=== PATIENT | male | born 1945 | race Caucasian/White ===

== ENCOUNTER 2020-11-07 | Inpatient (IN) | payer MEDICARE ==
[~2020-11-07] VITALS: Ht 188 cm; Wt 97.2 kg
[2020-11-07] MEDS ORDERED: ASPI325 PO (02:56)
[2020-11-07 04:59] LABS: BASOPHILS ABSOLUTE AUTO 0.09 K/mm3 (0.00-0.23); BASOPHILS PERCENT AUTO 1 % (0-2); EOSINOPHILS ABSOLUTE AUTO 0.26 K/mm3 (0.00-0.68); EOSINOPHILS PERCENT AUTO 3 % (0-6); Hematocrit 44.9 % (37.0-53.0); Hemoglobin 15.2 g/dL (13.5-17.5); IMMATURE GRAN ABSOLUTE AUTO 0.02 K/mm3 (0.00-0.10); IMMATURE GRAN PERCENT AUTO 0 % (0-1); LYMPHOCYTES ABSOLUTE AUTO 2.71 K/mm3 (0.84-5.20); LYMPHOCYTES PERCENT AUTO 26 % (21-46); MONOCYTES ABSOLUTE AUTO 1.25 K/mm3 (0.16-1.47); MONOCYTES PERCENT AUTO 12 % (4-13); Mean Corpuscular HGB 31.1 pg (26.0-34.0); Mean Corpuscular HGB Conc 33.9 g/dL (31.5-36.5); Mean Corpuscular Volume 92 fL (80-100); Mean Platelet Volume 12.1 fL (9.1-12.4); NEUTROPHILS PERCENT AUTO 58 % (41-73); Platelet Count 231 K/mm3 (150-400); RDW Coefficient Variation 12.5 % (11.7-14.2); RDW Standard Deviation 42.3 fL (35.1-46.3); Red Blood Cell Count 4.88 M/mm3 (4.30-5.90); White Blood Cell Count 10.33 K/mm3 (4.00-11.30)
[2020-11-07 05:32] LABS: Alanine Aminotransfer (ALT/SGP 20 U/L (12-78); Albumin, Blood 3.1 g/dL (3.4-5.0); Albumin/Globulin Ratio 0.8 (0.8-1.8); Alk Phos 72 U/L (50-136); Anion Gap 6 mmol/L (6-16); Aspartate Aminotrans (AST/SGOT 17 U/L (12-37); Bilirubin, Total 0.4 mg/dL (0.1-1.0); Blood Urea Nitrogen 14 mg/dL (8-24); Bun/Creatinine Ratio 18.1 (12.0-20.0); CO2, Blood 26 mmol/L (21-32); Calcium, Blood 9.2 mg/dL (8.5-10.1); Chloride, Blood 109 mmol/L (98-108); Creatinine, Blood 0.77 mg/dL (0.60-1.20); Globulin, Blood 4.1 g/dL (2.2-4.0); Glomerular Filtration Rate >60 (60-); Glucose, Blood 132 mg/dL (70-99); Potassium, Blood 3.7 mmol/L (3.5-5.5); Sodium, Blood 141 mmol/L (136-145); Total Protein, Blood 7.2 g/dL (6.4-8.2)
--- NOTE | 2020-11-07 06:27 | NUR ---
SHIFT SUMMARY: PATIENT WAS A DIRECT ADMIT FROM [facility]. ARRIVED TO THE ROOM VIA EMS GURNEY. ASSISTED TO TRANSFER TO BED. BEDSIDE REPORT OBTAINED. AOX3 WITH APHAGIA MIXING UP HIS INFORMATION WHICH MAKES HIM SOUND CONFUSED. PUPILS EQUAL AND REACTIVE BUT HE DOES REPORT SOME PERIPHERAL VISION DISTURBANCES. NO FACIAL DROOP. SMILE SYMETRIC. REPETATIVE QUESTIONS. NORMAL SIDE TO SIDE GAZE. RIGHT ARM DRIFT, CLUMSY AND SPASMATIC. UNABLE TO DIRECTOR OF HEMOPHILIA. DESENATIZATION ON RIGHT ARM AND RLE. ABLE TO ABDUCT AND ADDUCT. WEAK DIRECTOR OF HEMOPHILIA, FLEXTION, EXERTION. UNABLE TO COMPERHEND FINGER TO FINGER TOUCH, GOT CONFUSED ON THAT COMMAND. BP SLIGHTLY ELEVATED IN THE 150'S. NO CP, HEADACHES NOTED. ABLE TO DRINK AND SWALLOW FOOD. LATER IN SHIFT PUPILS BECAME UNEQUAL BUT WERE STILL REACTIVE. NEW CT ORDERED, STILL AWAITING RESULTS. NEW IV PLACED RIGHT FA 20G. IMPULSIVE AT TIMES. NEEDS HELP WITH URINAL. BED ALARM IS ON. CALL LIGHT IN REACH, BUT DOES NOT REMEMBER TO USE IT. WILL GIVE REPORT TO DAYSHIFT.
--- NOTE | 2020-11-07 17:05 | NUR ---
SHIFT SUMMARY PT IS AO WITH APHASIA. PT HAS CONFUSION AND JUMBLES WORDS. PT EVALUATED BY PT/OT/ST TODAY. PT IS ON RA. TELE RUNNING BRADYCARDIA AT 57 PER INSOLE BUFFER. NEURO CHECKS STABLE T/O SHIFT WITH RIGHT SIDED WEAKNESSES, IMPAIRED MOTOR SKILLS, AND NO FACIAL DROOP. PT APPETITE IS GOOD. PLAN IS FOR PLACEMENT. PT IS ONE ASSIST TO CHAIR THIS SHIFT, BUT UNSTEADY ON HIS FEET AT TIMES. PT IS IN ROOM, CALL LIGHT IN REACH, LOW POSITION.
--- NOTE | 2020-11-08 05:05 | NUR ---
SHIFT SUMMARY- PT. CONFUSED AND IMPULSIVE T/O THE NIGHT. CONTINOUSLY TRYING TO GET OOB. PT. HAS R SIDED WEAKNESS AND UNSTEADY GAIT. NOTIFIED PROVIDER, ALIYAH VEST PUT IN PLACE. PT. RESTLESS IN BED T/O THE NIGHT, SLEPT ON/OFF. NO APPARENT DISTRESS NOTED. APPEARS TO BE SLEEPING COMFORTABLY IN BED AT THIS TIME. WILL CONT TO MONITOR.
[2020-11-08 08:52] LABS: CHOL/HDL RATIO 4.1; Cholesterol 165 mg/dL (50-200); HDL Cholesterol 40 mg/dL (>39); LDL/HDL RATIO 1.8; Low Density Lipoprotein Chol 73 mg/dL (0-110); Triglycerides 259 mg/dL (30-160); Very Low Density Lipoprot Chol 51 mg/dL (6-32)
--- NOTE | 2020-11-08 11:12 | NUR ---
PT CONFUSION/ACUTE EVENT ST WORKING WITH PT AND THIS RN AT BEDSIDE AT APPROXIMATELY 0930. THIS RN LEFT THE ROOM, BUT RETURNED UPON HEARING ST ASK PT IF HE WAS OKAY. PT BECAME LETHARGIC DURING ORIENTATION QUESTIONING. THIS RN TOOK PT'S VITALS-VSS. PT NOTED TO BECOME DIAPHORETIC AND PALE DURING EVENT AND ONLY OPENED EYES TO VERBAL STIMULI. LEFT PUPIL BRISK REACTION AND RIGHT PUPIL SLUGGISH/FIXED REACTION UPON ASSESSMENT. THIS RN SPOKE WITH DR. VASQUEZ ABOUT EVENT AT APPROXIMATELY [address]. THIS RN WILL CONTINUE TO MONITOR PT STATUS.
--- NOTE | 2020-11-08 12:30 | NUR ---
PT TRANSFER NOTE PT TRANSFERRED TO ROOM 347 @ APPROX 1230 VIA BED. REPORT TAKEN FROM DEEPTHI Ochoa RN. PT IS IN [place] c 4 SIDE RAILS. [employer]OTE [employer] ADMISSIONS REPRESENTATIVE CALLED AND PT NOW ON [place]ER[place]. PT ORITENTED TO SELF ONLY, ABLE TO MAKE NEEDS KNOWN. SHOWED PT HOW TO USE CALL LIGHT AND OPERATE TV. FLUIDS PROVIDED @ BEDSIDE. PT APPEARS TO BE IN NO DISTRESS @ THIS TIME.
--- NOTE | 2020-11-08 17:59 | NUR ---
SHIFT SUMMARY NO ACUTE CHANGES, A&O TO SELF, ON RA, DENIES ANY DISTRESS. NEURO ASSESSMENT REMAINS UNCHANGED SINCE ARRIVAL TO ROOM. PT IS STILL IMPULSIVE AND FORGETS TO CALL, DIFFICULT TO REDIRECT AT TIMES. ABLE TO MAKE NEEDS KNOWN VERBALLY. REMIANS IN ALIYAH VEST AND 4 SIDE RAILS, WELL REMOTE MONITORING. PT IS CURRENTLY RESTING IN BED, CALL LIGHT WITHIN REACH AND BED ALARM ON.
--- NOTE | 2020-11-09 05:23 | NUR ---
END OF SHIFT SUMMARY:Pt A&O to self, denies discomfort at this time. Neuro checks every 4 hours, unchanged. Pt is able to make needs known. [place] discontinued at 1999. Pt impulsive at times and attempts to get out of bed. On bed alarm and remote monitoring. Pt resting at this time. Call light within reach, bed in lowest position.
--- NOTE | 2020-11-09 18:10 | NUR ---
PT PLEASANTLY CONFUSED TODAY. HAS BEEN IN CHAIR MUCH OF DAY. IS ALERT TO SELF. NO C/O PAIN. CONTINUES WITH RT WEAKNESS. CONTINUES TO BE CONFUSED, IS REDIRECTABLE. SETS OFF CHAIR AND BED ALARM REGULARLY. NO NEW CONCERNS NOTED. BED IN LOW OSITION, CALL LITE IN REACH, ALARM FOR SAFETY
--- NOTE | 2020-11-10 03:07 | NUR ---
PT ATTEMPTING TO GET OUT OF BED MULTIPLE TIMES. PROVIDER NOTIFIED. SEROQEL ORDERED AND GIVEN PER EMAR. WILL CONTINUE TO MONITOR.
--- NOTE | 2020-11-10 05:19 | NUR ---
END OF SHIFT SUMMARY: Q4 neuro checks, no change. Pt cannot feel R side. HE can move R arm and leg with concentration but does not have feeling in them. Pt is very restless tonight, attempting to get out of bed. MD notified. Medicated per EMAR. PT takes meds with whole sips of water. Pt is resting at this time. No acute events overnight. Call light within reach, bed in lowest position.
[2020-11-10 05:25] LABS: Albumin, Blood 3.1 g/dL (3.4-5.0); Anion Gap 7 mmol/L (6-16); Blood Urea Nitrogen 32 mg/dL (8-24); Bun/Creatinine Ratio 37.8 (12.0-20.0); CO2, Blood 25 mmol/L (21-32); Calcium, Blood 8.8 mg/dL (8.5-10.1); Chloride, Blood 107 mmol/L (98-108); Creatinine, Blood 0.85 mg/dL (0.60-1.20); Glomerular Filtration Rate >60 (60-); Glucose, Blood 116 mg/dL (70-99); Phosphorus, Blood 3.6 mg/dL (2.5-4.9); Potassium, Blood 3.7 mmol/L (3.5-5.5); Sodium, Blood 139 mmol/L (136-145)
--- NOTE | 2020-11-10 07:15 | NUR ---
RAPID RESPONSE CALLED AT SHIFT CHANGE THIS AM AT 0700. PT AMBAR DOWN TO 41 ON TELE AND WAS FOUND TO BE NON RESPONSIVE AND SLUMPED OVER IN CHAIR. ON ASSESSEMENT PT WAS NON RESPONSIVE TO VERBAL STIMULI AND MINIMALLY RESPONSIVE TO PAINFULL STIMULI. PT WAS TRANSFERRED BACK TO BED, VS CHECKED AND FOUND TO BE STABLE WITH EXCEPTION OF HR IN 40'S. CBG CHECKED AND WNL AT 108, EKG COMPLETED AND WAS UNREMARKABLE. 500NS BOLUS GIVEN AND MD NOTIFIED AND METOPROLOL D/C. PT DID RECIEVE SERAQUEL AT 0300 WHICH COULD HAVE CONTRIBUTED TO HIS MENTAL STATUS. HR DID IMPROVE TO 60'S WITH ACTIVITY. MD REQUEST NOTIFICATION IF HR DROPS BELOW 40'S OR IF HE IS FOUND TO BE NON-RESPONSIVE AGAIN.
--- NOTE | 2020-11-10 17:08 | NUR ---
75 Y MA ADDMITTED A TRANSFER FROM [facility] S/P L SIDE CVA. NUERO CONSULT COMPLETED PRIOR TO TRANSFER AND DETERMINED NO SURGICAL INTERVENTION AVAILABLE FOR HIS ISCHEMIC STROKE. PT DID HAVE MANAGER OF PLANNING CALLED THIS MORNING AND DID HAVE IMROVEMENT T/O DAY. PT EVAL COMPLETED TODAY, PT HAS L SIDE DEFICITS AND IS A 1-2 VT ASSIST TRANSFER. PT HAS BEEN UP TO CHAIR A FEW TIMES TODAY AND UP TO BSC FOR BM. PT HAS REUQUESTED TO "GO PEE" MULTILE TIMES BUT ONLY SUCCESSFULLY VOIDED INTO URINAL ONCE. PT WAS INC OF URINE (ATTENDS IN PLACE) A FEW TIMES TODAY. PT HAS BECOME MORE ALERT T/O THE DAY BUT DOES STRUGGLE WITH FINDING HIS WORDS AND ANSWERING QUESTIONS APPROPRIATELY. HE IS FORGETFULL AND IMPULSIVE BUT HAS BEEN EASILY REDIRECTED, PLEASANT AND COOPERATIVE WITH CARE. SPOKE WITH DAUGHTER DINA TODAY ABOUT HIS STATUS AND PLANS PENDING PLACEMENT FOR D/C. POSSIBLE D/C TO SNF IN [place] FOR REHAB DISCUSSED.
[2020-11-11 05:53] LABS: Anion Gap 7 mmol/L (6-16); Blood Urea Nitrogen 27 mg/dL (8-24); CO2, Blood 23 mmol/L (21-32); Calcium, Blood 8.8 mg/dL (8.5-10.1); Chloride, Blood 109 mmol/L (98-108); Creatinine, Blood 0.75 mg/dL (0.60-1.20); Glomerular Filtration Rate >60 (60-); Glucose, Blood 120 mg/dL (70-99); Phosphorus, Blood 2.7 mg/dL (2.5-4.9); Potassium, Blood 4.1 mmol/L (3.5-5.5); Sodium, Blood 139 mmol/L (136-145)
--- NOTE | 2020-11-11 06:10 | NUR ---
END OF SHIFT SUMMARY: Pt calmer tonight. Vitals within normal limits. Easily arousable and engages in small conversation once awoken. No feeling on the R side, neuro assessment unchanged. No acute events overnight. Pt incontinent, depends in place. Call light within reach. bed alarm on, bed in lowest position.
--- NOTE | 2020-11-11 18:00 | NUR ---
SHIFT SUMMARY 75 Y m admitted s/p L side CVA. pt is A&O to self only, confused speech most of the time. Pt is able to answer simple yes and no questions appropiately and does have expressive aphasia. Pt has L side deficit and is 2 pr assist transfer. Pt was up to chair and BSC several times today. Pt was continent mostly with occasional urine incontinence and attends in place. Pt was up with PT and was very impulsive and difficult to direct. Pt has been able to talk on the phone with his family members t/o day and RN has updated family over the phone as well. D/C planning is pending placement for rehab. No other acute changes this shift.
--- NOTE | 2020-11-12 04:36 | NUR ---
SHIFT SUMMARY PT ON TELEMETRY - RATE 75 WITH 1ST DEGREE HEART BLOCK PER ELECTRONICS DEPARTMENT MANAGER REPORT. PT IS CONTINENT/INCONTINENT WITH ATTENDS IN PLACE. HE SLEPT MOST OF THE SHIFT. VSS, NO ACUTE CHANGES. RIGHT SIDED WEAKNESS. BED ALARM IN PLACE, BED IN LOWEST POSITION.
--- NOTE | 2020-11-12 18:04 | NUR ---
SHIFT SUMMARY 75 Y M ADMITTED S/P ISCHEMIC STOKE. PT IS A&O 1-2, FORGETFULL, RESTLESS AND VERY IMPULSIVE. PT IS PLEASANT AND COOPERATIVE WITH CARE AND FREQUENTLY NEEDS REDIRECTED. PT HAS R SIDE DEFECIT AND IS A DIFFICULT 2 HI ASSIST TO TRANSFER. PT WORKED WITH PT AND OT TODAY AND TOLERATED WELL. PT HAD VISITORS FROM HIS [place]LAM TODAY AND HE SEEMED TO ENJOY THE COMPANY AND PRAYER. D/C PLANNING IN PROGRESS FOR CUSTODIAL UP [place] TO THE PT'S HOME. NO OTHER ACUTE CHANGES THIS SHIFT.
--- NOTE | 2020-11-13 06:29 | NUR ---
END OF SHIFT REPORT: NEURO CHECKS Q4, UNCHANGED. R SIDE DEFICIT. LESS EPISODES OF RESTLESSNESS OVERNIGHT. NO ACUTE EVENTS OVERNIGHT. NSR 60BPM WITH 1ST DEGREE HB. ASYMPTOMATIC. DENIES DISCOMFORT. EPISODES OF CONFUSION, REINFORCE TEACHING NEEDED. A&Ox2. BED ALARM ON, CALL LIGHT WITHIN REACH. BED IN LOWEST POSITION.
--- NOTE | 2020-11-13 11:08 | NUR ---
UMBRELLA MENDER CALLED TO INFORM THAT PT HAD A FEW BEATS OF V TACH BUT HAS SINCE CONVERTED BACK TO SINUS WITH PAC/PVC'S.
--- NOTE | 2020-11-14 05:37 | NUR ---
END OF SHIFT REPORT: Q4 neuro checks, unchanged. Pt still cannot feel R side. Reports some feeling on the R side of face. Pt resting better tonight. No new complaints. No acute events overnight. VS within normal limits. Pt able to voice needs. Bed alarm on, call light within reach, bed in lowest position.
--- NOTE | 2020-11-14 08:26 | NUR ---
PATIENT REFUSING MEDICATIONS THIS AM, STATES "I DONT NEED THEM" EDUCATED ON THE IMPORTANCE OF ASPIRIN AND LOVENOX, RIGHT SIDE DEFICIT, PATIENT FORGETFUL THIS AM, REPOSITIONING RIGHT ARM WITH LEFT ARM, WCTM, EATING BREAKFAST NOW WITH ASSISTANCE
--- NOTE | 2020-11-14 10:40 | NUR ---
Introduction: PT refered by PT family. Assessment: PT presented seated in chair, pleasant demeanor. PT was responsive to name and seemed to understand thoroughly that I was from the Spiritual Care Team. When PT heard that his son had refered the Spiritual Care Team for PT's care, PT was delighted and remarked, " My son is a believer and I love him dearly." PT was slightly upset at current state of affairs, when asked what that means, PT stated, "Were just wasting time." I asked PT if he is speaking of his personal state of affairs, or the public state of affairs. PT was confused and could not clarify. PT then explained that he had lost the use of his right hand and leg, but did not know why. I explained that he had a stroke, but PT did not understand. PT asked, "Where am I?" I explained to PT that he was at [facility] in [place]. PT seemed surprised that he was in [place], but remained calm during all of this state of confusion. I asked PT if he would like me to read some scripture. PT accepted offer and was interactive, during the reading. Intervention: PT was offered; a bible, scripture reading and prayer. Outcome: PT received; the bible, scripture reading and prayer. Follow-Up: As needed or requested.
--- NOTE | 2020-11-14 11:08 | NUR ---
BACK FROM HEAD CT
--- NOTE | 2020-11-14 11:54 | NUR ---
OT IN WORKING WITH PATIENT
--- NOTE | 2020-11-14 16:23 | NUR ---
Pt presented sitting up in chair alert. Pt had word salad but said plain as day, "I am saved and I love Devendra." pt said many thing and when asked if he wanted a prayer he said,"always". Pt teared up, as I prayed for his strength to and courage. Pt concerned about spouse. Pt offered gratitude for visit.
--- NOTE | 2020-11-15 04:33 | NUR ---
END OF SHIFT SUMMARY: Q4 neuro checks, no chnages. Pt still had R side deficits and loss of feeling on that side. Pt able to take meds whole with sip of water. Still has some sxpressive aphasia. Able to voive needs. A&Ox2. No new complaints overnight. No acute changes overnight. Pt resting at this time. Bed alarm on, Call light within reach, bed in lowest position.
[2020-11-15] MEDS ORDERED: LISI5 PO (11:51)
[2020-11-15] MEDS ORDERED: ATOR40TA PO (11:51)
[2020-11-15] MEDS ORDERED: ASPI81CH PO (11:52)
--- NOTE | 2020-11-15 16:26 | NUR ---
PATIENT DISCHARGED WITH SON NAYELI TO NAYELI[facility]S HOME IN [facility]. THIS AUTHOR DEMONSTRATED USE OF GAIT BELT AND SAFE TRANSFER TECHNIQUE WITH R FOOT GUARD TRANSFER TO W/C. SON'S IS A PHARMACIST, HAS THREE SONS, AND ACCESS TO OCCUPATIONAL THERAPISTS FOR THE IMMEDIATE PERIOD AFTER THEY GET HOME. SON VERBALIZED UNDERSTADNING OF D/C INSTRUCTIONS, WILL DISTRIBUTION ENGINEER MEDICATIONS AT PHARMACY BEFORE LEAVING. OFF UNIT AT 1616 VIA W/C. PER JANEEN PRATER, PT'S SON WAS ABLE TO PICK PT UP AND TRANSFER HIM TO THE CAR SAFELY. NO PERSONAL BELONGINGS LEFT BEHIND.
== END 2020-11-15 16:15 | disposition home or self-care (01) | DRG 65 ==
LOC: MEDS
PROVIDERS: Internal Medicine; ADMIT Hospitalist
DX: I63.89 Other cerebral infarction (principal); G93.49 Other encephalopathy; G81.91 Hemiplegia, unspecified affecting right dominant side; R29.710 NIHSS score 10; I10 Essential (primary) hypertension; R00.1 Bradycardia, unspecified; I44.0 Atrioventricular block, first degree; T44.7X5A Adverse effect of beta-adrenoreceptor antagonists, initial encounter
CPT/HCPCS: 36415; 70450; 80053; 80061; 80069; 82947; 85025; 92507; 92523; 92610; 93005; 93010; 97110; 97110-CQ; 97112; 97116; 97162; 97166; 97530; 97530-CQ; 97535; A9270; J1650; J7030